=== PATIENT | male | born 1995 | race Two or more races ===

== ENCOUNTER 2020-09-14 11:57 | Emergency (ER) | payer OTHER ==
[~2020-09-14] VITALS: Ht 165.1 cm; Wt 61.4 kg
[2020-09-14] MEDS ORDERED: TEST5GEL TD (12:11)
[2020-09-14] MEDS: LIDOCAINE 1% 10 ML VIAL ID ONE ×2 (15:50→15:51)
[2020-09-14] MEDS ORDERED: LIDOCAINE 1%/EPI 1:100,000 30 ML VIAL SQ ONE (16:00)
[2020-09-14 16:29] VITALS: BP 126/71
== END 2020-09-14 17:10 | disposition home or self-care (01) ==
LOC: EMS 11:57
DX: S61.011A Laceration without foreign body of right thumb without damage to nail, initial encounter (principal); S61.210A Laceration without foreign body of right index finger without damage to nail, initial encounter; S61.411A Laceration without foreign body of right hand, initial encounter; W25.XXXA Contact with sharp glass, initial encounter; Y93.89 Activity, other specified; Y92.89 Other specified places as the place of occurrence of the external cause; Y99.8 Other external cause status
CPT/HCPCS: 12005; 73130; 99283; J3490 ×2